=== PATIENT | male | born 1950 | race Caucasian/White ===

== ENCOUNTER 2018-02-19 09:52 | Outpatient (CLI) | payer BC ==
--- NOTE | 2018-02-19 13:47 | CT ---
CT ABDOMEN WITH AND WITHOUT IV CONTRAST CT PELVIS WITH AND WITHOUT IV CONTRAST: DATE: 02/19/18. HISTORY: Microhematuria, enlarged prostate gland. COMPARISON: None available. FINDINGS: There is a punctate nonobstructing superior pole nonobstructing right renal calculus. No additional renal or ureteral calculi are seen bilaterally. Subcentimeter too small to characterize hypodense le sions are seen in each kidney. There are larger hypodense lesions seen in each kidney with 1.6 cm hy podense lesion superior pole right kidney and a 1.6 cm hypodense lesion in the mid portion right kidn ey with superior pole left renal cystic lesion measuring 2.6 cm and smaller inferior pole left renal cystic lesion measuring 1.6 cm. These larger cystic lesions measuring greater than 1 cm demonstrate attenuation coefficients consistent with cysts. A subcentimeter too small to characterize hypodense lesion is seen in the medial aspect of the right hepatic lobe. Calcified granulomata are seen in the spleen. The lung bases, pancreas, and bilateral adrenal glands demonstrate a normal CT appearance. Vascular calcifications are seen in the abdominal aorta and involving the iliac arteries. Prostate gland is enlarged and heterogeneous in appearance with focal 1 cm enhancing focus in the pro state gland just to the right of midline centrally. The prostate gland measures 5.6 cm in transverse dimensions. The urinary bladder is incompletely distended. There is mass effect on the posterior inferior aspect of the urinary bladder due to the enlarged prostate gland. There is colonic diverticulosis present. The appendix is dilated measuring up to 1 cm, but there are small foci of gas within the appendix and there are no periappendiceal inflammatory changes. This is probably within normal limits for the pat ient. Degenerative changes are seen in the spine with prominent facet hypertrophic changes in the lower lum bar spine. IMPRESSION: 1. Bilateral renal cysts with subcentimeter too small to characterize hypo dense lesions in each kid leah. No enhancing renal mass is visualized. 2. Punctate nonobstructing superior pole right renal calculus. 3. Enlarged heterogeneous prostate gland with small 1 cm focus of enhancement seen within the centra l aspect of the prostate gland just to the right of midline. 4. Colonic diverticulosis. 5. Enlargement of the appendix, but this is probably within normal limits for the patient as there i s a small amount of gas in the appendix, and no periappendiceal inflammatory changes are seen. 6. Vascular calcifications in the abdominal aorta and iliac arteries. POS: [facility]
== END 2018-02-19 09:53 | disposition home or self-care (01) ==
LOC: SCSCT 09:52
PROVIDERS: ATTEND Urology
DX: R31.29 Other microscopic hematuria (principal); N28.1 Cyst of kidney, acquired; N28.9 Disorder of kidney and ureter, unspecified; N20.0 Calculus of kidney; N40.0 Benign prostatic hyperplasia without lower urinary tract symptoms; K57.30 Diverticulosis of large intestine without perforation or abscess without bleeding; K38.8 Other specified diseases of appendix; I70.0 Atherosclerosis of aorta; I70.8 Atherosclerosis of other arteries
CPT/HCPCS: 74177; 82565